=== PATIENT | female | born 1990 | race African-American/Black ===

== ENCOUNTER 2020-06-27 15:02 | Outpatient (CLI) | payer OTHER, SELFPAY ==
[2020-06-27 16:08] LABS: Mean Corpuscular HGB Conc 33.3 g/dl (32-36); Mean Corpuscular Hemoglobin 30.1 pg (26-34); Mean Corpuscular Volume 90.3 fl (80-100); Platelet Count Result 188 k/mm3 (150-375); Red Blood Count 4.32 M/mm3 (4.2-5.4); Red Cell Distribution Width 12.8 % (11.5-14.5); White Blood Count 7.9 K/mm3 (4.5-10.0)
[2020-06-27 16:19] LABS: Hemoglobin A1C 4.5 % (<5.7); INR 0.9; Partial Thromboplastin Time 29.6 SECONDS (22.3-36.8); Prothrombin Time 13.2 Seconds (11.1-14.7)
[2020-06-27 16:24] LABS: Alanine Aminotransferase 11 U/L (4-35); Albumin Level 4.2 g/dL (3.5-5.1); Alkaline Phosphatase 45 U/L (38-126); Anion Gap 11 mmol/L (8-16); Aspartate Amino Transferase 21 U/L (14-36); Bilirubin,Total 0.4 mg/dL (0.2-1.3); Blood Urea Nitrogen 10 mg/dL (7-17); Carbon Dioxide 26 mmol/L (22-30); Chloride 104 mmol/L (98-107); Estimated Glomerular Filt Rate > 60; Glucose 110 mg/dL (65-105); Potassium 3.4 mmol/L (3.4-5.0); Sodium 141 mmol/L (137-145)
[2020-06-27 16:32] LABS: Add Urine Microscopic? YES; Appearance Urine Clear (Clear); Bilirubin Urine Negative (Negative); Blood Urine Negative (Negative); Color Urine Yellow (Yellow); Glucose Urine UA Negative (Negative); Ketones Urine Negative (Negative); Leukocyte Esterase Ur Negative LEU/UL (NEGATIVE); Mucus Urine Heavy /lpf; Nitrate Urine Negative (Negative); Protein Urine 1+ mg/dL (Negative); RBC Urine 0-2 /hpf (0-2); Specific Grav Ur 1.029 (1.001-1.035); Squamous Epithelial Cell Urine Occasional /hpf (Few); Urobilinogen Urine Negative mg/dL (<2.0); WBC Urine 0-3 /hpf (0-3)
[2020-06-27 16:44] LABS: Beta HCG Quantitative < 2.39 mIU/ML
[2020-06-27 16:54] LABS: Thyroid Stimulating Hormone 0.977 uIU/mL (0.465-4.680)
[2020-06-27 17:03] LABS: HIV 1/2 Ab P24 Ag Result Negative (Negative)
[2020-06-27 17:24] LABS: T4 Thyroxine 7.73 ug/dL (5.53-11.0)
[2020-06-27 18:15] LABS: Total Triiodothyronine (T3) 1.09 NG/ML (0.97-1.69)
[2020-07-02 13:45] LABS: Absolute CD4 Count 960 cells/uL (490-1740); Lymphocytes, Absolute 2402 cells/uL (850-3900); Percent CD4 Cells 40 % (30-61)
== END 2020-06-27 15:03 | disposition home or self-care (01) ==
DX: Z01.818 Encounter for other preprocedural examination (principal)
CPT/HCPCS: 36415; 80053; 81001; 83036; 84436; 84443; 84480; 84702; 85027; 85610; 85730; 86359; 86360; 86361; 86703; G0432

== ENCOUNTER 2024-08-29 11:22 | Emergency (ER) | payer OTHER, SELFPAY ==
[2024-08-29 11:34] VITALS: BP 139/90; PULSE 97; RESP 15; TEMP 37.3; O2SAT 98
--- NOTE | 2024-08-29 11:37 | ED.DENTAL ---
HPI - Dental/Oral General Chief complaint: Dental/Oral Stated complaint: Dental Pain Time Seen by Provider: 08/29/24 11:37 Source: patient, RN notes reviewed and old records reviewed Mode of arrival: ambulatory Limitations: no limitations History of Present Illness HPI Narrative: Patient presents with complaints of dental pain. Pain has been present for a couple of months, has been getting worse. She has been using ibuprofen with poor results. She has had extensive dental work done on the right side, where most of her pain is. She attempted to call the dentist that did her dental work, but the office is permanently closed. She reports that she has developed some swelling in the gum surrounding a root canal. In addition she is complaining about some lower left dental pain that has not been addressed by dentist yet. She denies any fever, chills, sweats. She is able to chew and swallow, although she does state that chewing increases her pain. She denies any recent injury or trauma. Voices no other concerns or complaints at this time. Related Data Allergies Allergy/AdvReac Type Severity Reaction Status Date / Time No Known Allergies Allergy Verified 08/29/24 11:26 Review of Systems Review of Systems: All systems reviewed & are unremarkable except as noted in HPI and below Constitutional: Constitutional: Reports no additional constitutional complaints ENT: Reports system reviewed and no additional complaints, except as documented and Reports dental pain Cardiovascular: Cardiovascular: Reports no additional cardiovascular complaints Respiratory: Respiratory: Reports no additional respiratory complaints Gastrointestinal: Gastrointestinal: Reports no additional gastrointestinal complaints PMFSH Comments At the time of my signature, I reviewed and agree with the nursing past medical, surgical, social, and family history. There is no relevant family history pertinent to the patient complaint. Exam Const: General: cooperative, no acute distress, alert and awake Orientation/consciousness: oriented to person, oriented to place and oriented to time HENMT: Head: normal to inspection Ears: TM's normal bilaterally Mouth: Yes moist mucous membranes Teeth and gingiva: caries (Multiple), fair dentition and gingiva abnormal tender (right lower) Resp: Effort & Inspection: normal respiratory effort and able to speak in complete sentences Auscultation: clear to auscultation bilaterally, no crackles, no rales, no rhonchi and no wheezes Cardio: Palpation: normal PMI Rate: regular rate Rhythm: regular rhythm Heart sounds: S1 normal heart sound present and S2 normal heart sound present Neuro: General: oriented to person, oriented to place and oriented to time Cranial nerves: Yes CN's II-XII intact bilaterally Psych: Appearance: grossly normal Thought process: Normal thought process present Insight: Good insight present (Psych) Judgement: Good judgement present (Psych) Course Course Level of Care: Express Care Visit Vital Signs Vital signs: Vital Signs Temperature 99.1 F 08/29/24 11:34 Pulse Rate 97 08/29/24 11:34 Respiratory Rate 15 08/29/24 11:34 Blood Pressure 139/90 08/29/24 11:34 Pulse Oximetry 98 08/29/24 11:34 Oxygen Delivery Room Air 08/29/24 11:34 Temperature 99.1 F 08/29/24 11:34 Pulse Rate 97 08/29/24 11:34 Respiratory Rate 15 08/29/24 11:34 Blood Pressure 139/90 08/29/24 11:34 Pulse Oximetry 98 08/29/24 11:34 Oxygen Delivery Room Air 08/29/24 11:34 Reviewed MDM - Dental/Oral MDM Narrative Medical decision making narrative: Patient with multiple dental caries, some gingival tenderness. Treat as dental infection, patient advised follow-up with dentist. List provided. Emergency department precautions discussed with patient. Discharge instructions reviewed with patient, as well as provided in writing per nursing staff. The instructions also include specific and strict return/GO TO THE ER as well as f/u information. All questions have been answered, and the patient deny any further questions with discharge and discharge plan. Some parts of this dictation were generated by voice recognition software and may contain typographical and/or grammatical inaccuracies. Differential Diagnosis Differential diagnosis: Likely gingival abscess, dental caries, toothache and dental abscess Medical Records Attestation: I reviewed the patient's medical records. Discharge Plan Discharge Clinical Impression: Dental caries Patient Disposition: Home, Self-Care Condition: Stable Instructions: Antibiotic Form, Toothache (ED) Additional Instructions: Take medications as prescribed. Follow-up with primary care provider. Emergency department for new or worse symptoms Patient Language: Polish Prescriptions: New amoxicillin 875 mg tablet 875 mg PO Q12H Qty: 14 0RF naproxen [Naprosyn] 500 mg tablet 500 mg PO BID PRN (Reason: pain) Qty: 20 0RF Follow-up/Referrals: PHYSICIAN,TECHNICAL SALES SUPPORT SPECIALIST [Primary Care Provider] - Stand Alone Forms: Work/School Release IP Time of Disposition: 11:51
== END 2024-08-29 11:55 | disposition home or self-care (01) ==
PROVIDERS: Emergency Provider Nurse Practitioner Family
DX: K02.9 Dental caries, unspecified (principal)
CPT/HCPCS: 99203; G0463

== ENCOUNTER 2025-03-06 13:18 | Emergency (ER) | payer OTHER, SELFPAY ==
[2025-03-06 13:26] VITALS: BP 144/90; PULSE 86; RESP 20; TEMP 36.5; O2SAT 94
--- NOTE | 2025-03-06 13:37 | ED.GENADULT ---
HPI - General Adult General Chief complaint: Dental/Oral Stated complaint: tooth pain Source: patient Mode of arrival: ambulatory Limitations: no limitations History of Present Illness HPI narrative: Pt is a 34 y/o female presenting with c/o R. upper dental pain x 1 week. Reports hx of root canal to that area. Tx initiated [employer]ER includes tylenol/ibuprofen. NO constitutional sx. No additional complaints. Related Data Allergies Allergy/AdvReac Type Severity Reaction Status Date / Time No Known Allergies Allergy Verified 03/06/25 13:36 Review of Systems Review of Systems: CONSTITUTIONAL: Denies body aches, fever, chills, or sweats. EYES: Denies visual changes, redness, or discharge. ENT: Reports dental pain Denies rhinorrhea, congestion, sore throat, or otalgia. CARDIOVASCULAR: Denies chest pain, palpitations, or edema. RESPIRATORY: Denies cough or dyspnea. GASTROINTESTINAL: Denies abdominal pain, nausea, vomiting, or diarrhea. GENITOURINARY: Denies dysuria or hematuria. SKIN: Denies rash, itching, or wounds. MUSCULOSKELETAL: Denies back pain, joint pain, or myalgia. NEUROLOGIC: Denies headache, numbness, tingling, or weakness. PSYCH: Denies depression or anxiety. All systems reviewed & are unremarkable except as noted in HPI and below Exam Narrative: GENERAL: Well-appearing, well-nourished, and in no acute distress. HEAD: Normocephalic, atraumatic. EYES: EOMI. No redness or drainage. Conjunctivae normal. ENT: Mucous membranes pink and moist. Nares clear. No rhinorrhea. tooth #4 is TTP without visible abscess. Throat normal. No evidence of kwaku angina. No trismus Uvula midline. NECK: Normal AROM. Supple. No lymphadenopathy. CHEST: No respiratory distress. HEART: Normal rate EXTREMITIES: Normal range of motion. No edema. SKIN: Warm, dry, no rash. Capillary refill normal. Normal skin turgor. NEURO: No focal deficits. Alert and oriented x3. Gait steady. PSYCH: Normal affect. No signs of depression or anxiety. Course Course Level of Care: Express Care Visit Vital Signs Vital signs: Vital Signs Temperature 97.7 F 03/06/25 13:26 Pulse Rate 86 03/06/25 13:26 Respiratory Rate 20 03/06/25 13:26 Blood Pressure 144/90 H 03/06/25 13:26 Pulse Oximetry 94 03/06/25 13:26 Oxygen Delivery Room Air 03/06/25 13:26 Temperature 97.7 F 03/06/25 13:26 Pulse Rate 86 03/06/25 13:26 Respiratory Rate 20 03/06/25 13:26 Blood Pressure 144/90 H 03/06/25 13:26 Pulse Oximetry 94 03/06/25 13:26 Oxygen Delivery Room Air 03/06/25 13:26 Medical Decision Making Vital Signs Vital Signs: Vital Signs Temperature 97.7 F 03/06/25 13:26 Pulse Rate 86 03/06/25 13:26 Respiratory Rate 20 03/06/25 13:26 Blood Pressure 144/90 H 03/06/25 13:26 Pulse Oximetry 94 03/06/25 13:26 Oxygen Delivery Room Air 03/06/25 13:26 Temperature 97.7 F 03/06/25 13:26 Pulse Rate 86 03/06/25 13:26 Respiratory Rate 03/06/25 13:26 Blood Pressure 144/90 H 03/06/25 13:26 Pulse Oximetry 94 03/06/25 13:26 Oxygen Delivery Room Air 03/06/25 13:26 Discharge Plan Discharge Clinical Impression: Dentalgia, Elevated blood pressure reading in office without diagnosis of hypertension Patient Disposition: Home Condition: Stable Instructions: Antibiotic Form Additional Instructions: Go straight to ER should your symptoms become worse or should any new symptoms develop Patient Language: Singaporean Prescriptions: New penicillin V potassium 500 mg tablet 500 mg PO Q12H 10 Days Qty: 20 0RF Follow-up/Referrals: PHYSICIAN,REAL ESTATE DEVELOPMENT MANAGER [Primary Care Provider] - 03/06/25 (follow up with dentist KEVIN) Time of Disposition: 13:42
== END 2025-03-06 13:44 | disposition home or self-care (01) ==
PROVIDERS: Emergency Provider Registered Nurse
DX: K08.89 Other specified disorders of teeth and supporting structures (principal); R03.0 Elevated blood-pressure reading, without diagnosis of hypertension
CPT/HCPCS: 99213; G0463